=== PATIENT | male | born 1945 | race Caucasian/White ===

== ENCOUNTER 2019-05-22 05:41 | Inpatient (IN) ==
--- NOTE | 2019-05-07 10:51 | PAT Medication Instructions ---
Medication Instructions Date of Service May 07, 2019 Home Medications finasteride 5 mg tablet 5 mg PO QAM folic acid 1 mg PO QAM DO NOT take the morning of surgery finasteride 5 mg tablet 5 mg PO QAM folic acid 1 mg PO QAM Other Notes If you have any questions please call us at [phone] or [phone] or [phone] or [phone]
--- NOTE | 2019-05-07 14:27 | Anesthesiology Consultation ---
Date of Service May 07, 2019 Assessment & Plan (1) Encounter for pre-operative examination: PCP: 05/01/19: "Appears medically stable for procedure." Intermittent dysphagia to solids, no unexplained weight loss. PCP will consult GI for EGD after prostate surgery. Chart Review Chart Review: Acceptable Risk for Surgery and Patient seen in Pre Admission Testing Teaching & Discussion Pre-Anesthesia Teaching/Discussion Notes: Instructed NPO after midnight before surgery,except medications with 15 cc of water. Medication instructions provided according to the PAT guidelines. History Surgery Operation Date: 05/22/19 07:30 Proposed Procedures p Laparoscopic Robotic Assisted Radical Retropubic Prostatectomy, Possible Open, Possible Pelvic Lymph Node Dissection, Possible Suprapubic Tube Placement - Cristobal Moreno MD Height/Weight Height: 5 ft 10 in Weight: 85.1 kg Allergies Allergy/AdvReac Type Severity Reaction Status Date / Time No Known Drug Allergies Allergy Unknown Uncoded 04/30/19 12:08 Medications Home Medications Medication Instructions Recorded Confirmed Last Taken finasteride 5 mg tablet 5 mg PO QAM 04/16/19 04/30/19 Unknown folic acid 1 mg PO QAM 04/30/19 04/30/19 Unknown Past Medical History Medical History BPH (benign prostatic hyperplasia) Hearing deficit Osteoarthritis Prostate cancer Exercise / Class Metabolic Activity II 4-5 Yardwork/Stairs/Walk up hill (large distances walking/some climbing with working (works as building coordinator)) Past Family History Family History Grandmother (Maternal) Family history of diabetes mellitus Past Surgical History Surgical History H/O prostate biopsy History of cataract surgery RT/LEFT History of colonoscopy History of tonsillectomy and adenoidectomy History of tooth extraction Past Anesthesia History No Hx of Anesthesia Complications and No Family Hx of Anesthesia Complications History of PONV No Hx of PONV and No Hx of Motion Sickness Social History Smoking Status: Former smoker tobacco type: cigarettes and cigars Do You Dip or Chew Tobacco: No Smoking End Date: SMOKED IN HIS TEENS YEARS Hx Alcohol Use: Yes Alcohol type: beer and hard liquor alcohol intake frequency: 3 or more drinks per day (1-3 (no more than 3 beers) per day) Hx Substance Use: No substance use type: does not use Review of Systems Patient denies chest pain, shortness of breath, dyspnea on exertion, reflux, cough, wheezing, palpitations. Physical Exam Vital Signs VITALS BP 131/79 P 59 TEMP 97.6 SP02 94%RA RESP 16 PHYSICAL Full neck and c-spine range of motion. Full TMJ range of motion. TMD 3 finger breaths Mallampati Score 2 Dentition: intact Lungs: clear throughout to auscultation Cardiac: regular rate and rhythm, no murmurs noted Spine: normal Carotid arteries: negative bruit Extremities: no edema Testing Laboratory Results 05/07/19 14:37 05/07/19 14:37 Urine Color Yellow 05/07/19 14:37 Urine Appearance Clear (Clear) 05/07/19 14:37 Urine pH 6.0 (4.5-7.5) 05/07/19 14:37 Ur Specific [place] 1.015 (1.000-1.030) 05/07/19 14:37 Urine Protein Negative (Negative) 05/07/19 14:37 Urine Glucose (UA) Negative (Negative) 05/07/19 14:37 Urine Ketones Negative (Negative) 05/07/19 14:37 Urine Nitrite Negative (Negative) 05/07/19 14:37 Ur Leukocyte Esterase Negative (Negative) 05/07/19 14:37 Blood Type B Positive 05/07/19 14:37 Antibody Screen NEGATIVE 05/07/19 14:37 Electrocardiogram Date: 05/07/19 Findings: + SB @ (59) Chest X-Ray Date: 05/07/19 Findings: + NAD
--- NOTE | 2019-05-07 14:30 | PAT Medication Instructions ---
Medication Instructions Date of Service May 07, 2019 Home Medications finasteride 5 mg tablet 5 mg PO QAM folic acid 1 mg PO QAM DO NOT take the morning of surgery folic acid 1 mg PO QAM Take morning of surgery With a small sip of water, OTHERWISE NOTHING TO EAT OR DRINK AFTER MIDNIGHT: finasteride 5 mg tablet 5 mg PO QAM Other Notes If you have any questions please call us at [phone] or [phone] or [phone] or [phone]
--- NOTE | 2019-05-07 15:07 | XRay Report ---
XR chest Pre-admission PA/Lat CLINICAL HISTORY: Preoperative evaluation. COMPARISON STUDY: No previous studies for comparison. FINDINGS: Lung volumes are normal. Lungs are clear. There is no pneumothorax or pleural effusion. Car diac size is normal. Mediastinal contours are normal. There is no evidence for pulmonary edema. IMPRESSION: No acute cardiopulmonary findings. Electronically signed by: rBaydon Chew M.D. 05/07/2019 3:06 PM
[2019-05-07 15:55] LABS: Basophils # (auto) 0.03 K/uL (0-0.2); Basophils % (auto) 0.6 %; Eosinophils # (auto) 0.14 K/uL (0-0.5); Eosinophils % (auto) 2.8 %; Hematocrit (blood only) 41.1 % (42-52); Immature Granulocytes # (auto) 0.01 K/uL (0.00-0.02); Immature Granulocytes % (auto) 0.2 %; Lymphocytes % (auto) 30.5 %; Mean Corpuscular Hgb Conc 34.1 g/dL (32-36); Mean Corpuscular Volume 93.8 fL (80-100); Mean Platelet Volume 10.5 fL (7.4-10.4); Monocytes # (auto) 0.44 K/uL (0.11-0.59); Monocytes % (auto) 8.9 %; Platelet Count 197 K/uL (130-400); RDW Coefficient of Variation 12.6 % (11.5-14.5); Red Blood Count 4.38 M/uL (4.7-6.1); White Blood Count 4.92 K/uL (4.8-10.8)
[2019-05-07 16:01] LABS: BUN Creatinine Ratio 20.8 (10-20); Creatinine Clr Calc Pharmacy 83.4 ml/min; Est GFR (African American) 101.8; Est GFR (Non-African American) 87.8; Potassium 4.1 mmol/L (3.5-5.1)
[2019-05-07 16:02] LABS: Appearance Urine Clear (Clear); Bilirubin Urine Negative (Negative); Blood Urine Negative (Negative); Color Urine Yellow; Glucose Urine UA Negative (Negative); Ketones Urine Negative (Negative); Leukocyte Esterase Urine Negative (Negative); Nitrite Urine Negative (Negative); Protein Urine Negative (Negative); Specific Gravity Urine 1.015 (1.000-1.030); Urobilinogen Urine Negative (Negative)
[2019-05-22] MEDS ORDERED: HEPARIN SOD 5,000 UNIT/0.5 ML VIAL SQ SCH (06:00)
[2019-05-22] MEDS ORDERED: ACETAMINOPHEN 1,000 MG/100 ML VIAL IV SCH (06:00)
[2019-05-22] MEDS ORDERED: LR 15ML/HR IV SCH ×2 (06:00)
[2019-05-22] MEDS ORDERED: CEFAZOLIN 2000MG 2,000 MG/15 ML SYR IV SCH (06:00)
[2019-05-22] MEDS ORDERED: MIDAZOLAM HCL 1 MG/ML 2ML VIAL ONE (06:31)
[2019-05-22] MEDS ORDERED: HYDROmorphone INJ 2 MG/ML SYR/VIAL ONE (06:31)
[2019-05-22] MEDS ORDERED: fentaNYL citrate 100 MCG/2 ML VIAL ONE (06:31)
--- NOTE | 2019-05-22 06:58 | History & Physical Bridge Note ---
Date of Service May 22, 2019 History & Physical Bridge Note I have examined the patient, reviewed the History & Physical and in the interval since the performance of the History & Physical I have noted the following changes of clinical significance: no changes noted
[2019-05-22] MEDS ORDERED: BUPIVACAINE 0.5 % 5 MG/1 ML MPF 30ML VIAL ONE (07:29)
[2019-05-22] MEDS ORDERED: PROMETHAZINE HCL 12.5 MG in SODIUM CHLORIDE 0.9% 50 ML IV PRN (08:02)
[2019-05-22] MEDS ORDERED: HYDROmorphone INJ 2 MG/ML SYR/VIAL IV PRN (08:02)
[2019-05-22] MEDS ORDERED: ATROPINE SULFATE 0.1 MG/ML 10ML SYR IV PRN (08:02)
[2019-05-22] MEDS ORDERED: fentaNYL citrate 100 MCG/2 ML VIAL IV PRN (08:02)
[2019-05-22] MEDS ORDERED: ONDANSETRON INJ 2 MG/ML 2 ML VIAL IV PRN ×2 (08:02→12:46)
[2019-05-22] MEDS ORDERED: ePHEDrine sulfate 50 MG/ML AMP IV PRN (08:02)
[2019-05-22] MEDS ORDERED: METOCLOPRAMIDE HCL INJ 5 MG/ML 2 ML VIAL IV PRN (08:02)
[2019-05-22] MEDS ORDERED: PROPOFOL IV EMULSION 10 MG/ML 20 ML VIAL IV ONE (08:16)
[2019-05-22] MEDS ORDERED: LIDOCAINE HCL 2% 2 ML VIAL/AMP(20MG/ML) INFIL ONE (08:16)
[2019-05-22] MEDS ORDERED: ONDANSETRON INJ 2 MG/ML 2 ML VIAL ONE (08:16)
[2019-05-22] MEDS ORDERED: ROCURONIUM BROMIDE 10 MG/ML 5 ML VIAL ONE ×4 (08:16→10:48)
[2019-05-22] MEDS ORDERED: DEXAMETHASONE SOD INJ 4 MG/ML VIAL ONE (08:16)
[2019-05-22] MEDS ORDERED: NEOSTIGMINE METHYLSULFATE 5 MG/5 ML SYR ONE (08:16)
[2019-05-22] MEDS ORDERED: GLYCOPYRROLATE 0.2 MG/ML VIAL ONE (08:16)
[2019-05-22] MEDS ORDERED: ePHEDrine sulfate 50 MG/ML SYR ONE (08:16)
[2019-05-22] MEDS ORDERED: SURGICEL ABSORB HEMOSTAT 2IN X 14IN TOP ONE (08:45)
[2019-05-22] MEDS ORDERED: FLOSEAL HEMOSTATIC MATRIX 10ML TOP ONE (09:42)
--- NOTE | 2019-05-22 11:18 | Operative Report ---
Post Operative Report Pre & Post Diagnosis Operation Date: 05/22/19 07:30 Pre-Op Diagnosis: Prostate Cancer Post-Op Diagnosis: Prostate Cancer Procedure Operation Date: 05/22/19 07:30 Actual Procedures p Laparoscopic Robotic Assisted Radical Retropubic Prostatectomy, Bilateral Pelvic Lymph Node Dissection - Cristobal Moreno MD Surgeon Cristobal Moreno MD [employer] Todd[employer] Teacher Latonya ORNELAS Estimated Blood Loss 50 Findings Consistent with Post-Op Diagnosis Specimens Prostate + SV, R vas, R and L PLN, periprostatic fat Description of Procedure RALRP, BPLND I attest to the content of the Intraoperative Record and any orders documented therein. Any exceptions are noted below.
[2019-05-22 11:47] LABS: Basophils # (auto) 0.01 K/uL (0-0.2); Basophils % (auto) 0.1 %; Eosinophils # (auto) 0.02 K/uL (0-0.5); Eosinophils % (auto) 0.3 %; Hematocrit (blood only) 39.7 % (42-52); Hemoglobin 13.8 g/dL (14.0-18.0); Immature Granulocytes # (auto) 0.01 K/uL (0.00-0.02); Immature Granulocytes % (auto) 0.1 %; Lymphocytes # (auto) 0.86 K/uL (1.2-3.4); Lymphocytes % (auto) 12.7 %; Mean Corpuscular Volume 92.5 fL (80-100); Mean Platelet Volume 10.4 fL (7.4-10.4); Monocytes # (auto) 0.15 K/uL (0.11-0.59); Monocytes % (auto) 2.2 %; Neutrophils # (auto) 5.73 K/uL (1.4-6.5); Neutrophils % (auto) 84.6 %; Platelet Count 137 K/uL (130-400); RDW Coefficient of Variation 12.6 % (11.5-14.5); RDW Standard Deviation 42.2 fL (36.4-46.3); Red Blood Count 4.29 M/uL (4.7-6.1); White Blood Count 6.78 K/uL (4.8-10.8)
[2019-05-22 12:04] LABS: BUN Creatinine Ratio 18.9 (10-20); Calcium 8.2 mg/dl (8.5-10.1); Creatinine Clr Calc Pharmacy 75.1 ml/min; Est GFR (African American) 98.8; Est GFR (Non-African American) 85.2; Potassium 4.6 mmol/L (3.5-5.1)
--- NOTE | 2019-05-22 12:05 | Anesthesiology Progress Note ---
Date of Service May 22, 2019 Anesthesia Post Procedure Vital Signs Vital Signs: Temp Pulse Pulse Resp BP Pulse Ox 05/22/19 11:55 36.4 C L 67 16 134/64 95 05/22/19 11:45 71 18 127/64 98 05/22/19 11:35 63 16 134/69 97 05/22/19 11:27 36.0 C L 63 16 104/60 99 05/22/19 06:08 36.5 C 68 22 149/87 H 94 Transfer of Care Handoff Completed per policy Notes Mental Status: alert / awake / arousable and participated in evaluation Patient Amnestic to Procedure: Yes Nausea / Vomiting: adequately controlled Pain: adequately controlled Airway Patency, RR, SpO2: stable & adequate BP & HR: stable & adequate Hydration State: stable & adequate Anesthetic Complications: no major complications apparent
[2019-05-22 12:18] LABS: Mean Corpuscular Hgb Conc 34.8 g/dL (32-36)
[2019-05-22] MEDS ORDERED: ACETAMINOPHEN 1,000 MG/100 ML VIAL IV PRN (12:46)
[2019-05-22] MEDS ORDERED: MoRPHine SULFATE 4 MG/ML 1 ML CARP\\VIAL IV PRN (12:46)
[2019-05-22] MEDS ORDERED: OXYCODONE HCL IR 5 MG TAB (IMMEDIATE RELEASE) PO PRN (12:46)
--- NOTE | 2019-05-22 12:56 | Operative Report ---
DATE OF OPERATION: 05/22/2019 PREOPERATIVE DIAGNOSIS: [place] 3+4 adenocarcinoma of the prostate, pretreatment PSA of 12.4. POSTOPERATIVE DIAGNOSIS: [place] 3+4 adenocarcinoma of the prostate. PROCEDURE: Robot-assisted laparoscopic radical retropubic prostatectomy with bilateral pelvic lymph node dissection. SURGEON: Cristobal Moreno MD SALES DEVELOPMENT ASSOCIATE: JOHNSON Gonzalez. Radiologic Tech present throughout the case for retraction, patient positioning, passage of instruments and sutures, suction and irrigation, placement of hemostatic agents, and general patient safety. ANESTHESIA: General anesthesia with endotracheal intubation plus local at port sites. ESTIMATED BLOOD LOSS: 50 mL. INTRAVENOUS FLUIDS: 1400 mL of crystalloid. SPECIMENS SENT TO PATHOLOGY: Periprostatic fat, right vas deferens, prostate plus seminal vesicles, right pelvic lymph nodes and left pelvic lymph nodes. DRAINS LEFT IN PLACE: Include an 18-Uzbek Munson catheter with 10 mL of sterile water in the balloon and a #10 GRUPO drain in the left lower quadrant. COMPLICATIONS: None. FINDINGS: Watertight anastomosis with excellent hemostasis. Periprostatic inflammation with brawny lymph nodes. BRIEF HISTORY: Mr. Shannon is a pleasant 74-year-old male with history of elevated and rising PSA, 12.4 prior to biopsy and a low free PSA. Prostate biopsy has demonstrated 8 out of 14 cores of [place] 3+3 and 3+4 adenocarcinoma of the prostate throughout the gland. After discussion of risks and benefits of various forms of intervention, the patient has decided upon a robotic prostatectomy to manage his disease. Seeing the nomogram risk of lymph node involvement of 6%., a pelvic lymph node dissection is planned. Please see H and P for further details. Intravenous Ancef is provided for antibiotic coverage and SCDs used for DVT prophylaxis as well as subcutaneous heparin. Intravenous Tylenol was provided preoperatively for additional analgesia. DESCRIPTION OF PROCEDURE: The patient was properly identified and brought into the operative suite after identification of appropriate consent on the chart. General anesthesia with endotracheal intubation was initiated and patient was prepped and draped in standard fashion for this procedure. All port sites were anesthetized with local prior to incision. A part time receptionist-out procedure was followed. A transverse supraumbilical incision was made and a 0-degree laparoscope was used with a visual obturator to access the abdominal cavity under direct visualization. This was insufflated to 15 mmHg and surveyed demonstrating some inflammatory changes and scarring around the sigmoid colon consistent with a history of diverticulitis with no other significant intra-abdominal abnormalities. Ports were placed for a 4th arm robotic template including two left-sided 7 mm ports, one right-sided 7 mm robotic port, and a 5 and 12 mm assistant to the dean port. The patient was placed in Trendelenburg and robot was brought in and docked. Colonic adhesions were taken using the cold scissors and then a 0-degree lens was used to drop the bladder down to the level of the pelvis. Periprostatic fat was dissected free and sent for pathologic analysis. Endopelvic fascia was sharply entered on both sides and blunt dissection was carried down to the level of the apex of the prostate. Dorsal venous complex was skeletonized and puboprostatic ligaments were incised. A 0 Vicryl suture on a CT1 needle was used to control the dorsal venous complex in a [id number] fashion. After this was complete and dissection was completed anteriorly, a 30-degree down lens was used to complete the bladder neck dissection. Bladder neck was skeletonized and then divided. Munson was brought through the incision and posterior bladder neck was identified. The patient was noted to have a median lobe element within the vesicle lumen, relatively small in size. The bladder was dissected off of this and posterior dissection was carried out. This was brought down to the level of the vas deferens in the midline. At this level, patient was noted to have significant amounts of inflammation present around the ejaculatory ducts at the seminal vesicles. These were partially skeletonized and attention returned to the prostatic pedicles bilaterally. Thickened periprostatic fat and tissue was appreciated at the level of the base of the prostate bilaterally. Plane of dissection was altered to allow for inclusion of this fat with the prostatic specimen. Again, significant amount of inflammation was appreciated. Vessel sealer was used to control the prostatic pedicles and carry the dissection distal alongside the prostate gland. Partial nerve-sparing dissection was carried out. This was completed on both sides with cold scissors being used to drop the rectum in the midline up to the level of the apex of the prostate. Attention was then turned to the dorsal venous bundle again which was divided using hot scissors. Urethra was skeletonized and divided. Adherent and inflammatory rectourethralis fibers were also divided. Care was taken to avoid any violation of the prostate at the apex of the gland although some difficulties with anatomic structures were appreciated due to the patient's anatomy. The remaining prostatic attachments were divided and prostate was brought up into the abdomen where it was placed within an EndoCatch bag for retrieval at the end of the case. Attention was turned to the contents of the pelvis where excellent hemostasis was appreciated. FloSeal tissue sealant was placed over the prostatic bed for additional hemostasis. Bladder neck was noted to be continent at this stage. Attention was then turned to the obturator lymph node dissections on both sides. Monopolar cautery and Weck clips were used to control the vessels and large lymphatics as necessary. Dissection was carried out using the obturator nerve, external iliac vein and pelvic side wall as the confines of dissection on both sides. Lymph node packets were noted to be relatively thick. No evidence of any injury to the obturator nerves or the external iliac vein were appreciated. After this had been completed on both sides, the left-sided packet was tagged using 2 Weck clips for identification. These were placed within an EndoCatch bag seeing their inability to be withdrawn through the 12 mm assistant to the dean port, also retrieval at the end of the case. FloSeal tissue sealant was placed within the obturator fossa bilaterally for additional hemostasis. Attention was again turned to the pelvis where excellent hemostasis was noted. Of note, prior to placement of hemostatic agent, the rectum had been insufflated under saline irrigation and noted to be free of any injury. A circumferential running anastomosis was performed between the bladder neck and the urethra using a double-armed V-Loc suture. Munson catheter was used for guidance and visualized entering the bladder after completion of closure. A 10 mL of sterile water were placed within the balloon and bladder was filled with greater than 120 mL of sterile irrigant and noted to be watertight. The bladder was drained and fourth arm was removed. A #10 GRUPO drain was brought in via the fourth arm port and placed within the confines of the pelvis while avoiding placing it directly over the anastomosis. Robotic instruments were removed and robot was dedocked. Camera was brought in via the assistant to the dean 12 mm port and the strings in the EndoCatch bags were brought up through the supraumbilical incision. Ports were removed and a supraumbilical incision was enlarged sufficiently to allow for easy removal of the specimen bags. Specimens were handed off for pathologic analysis. A supraumbilical incision was closed in a running fashion using an 0 Vicryl on a UR-5 needle. A #10 GRUPO drain was secured in place using a 2-0 silk suture. Skin was closed using 4-0 Monocryl and Dermabond. Excess carbon dioxide gas was removed from the abdomen prior to completion of closure. Anesthesia was reversed and patient was transferred to the recovery room in stable condition. FOLLOWUP CARE: The patient will be admitted to the floor for standard postoperative management. I attest to the content of the Intraoperative Record and any orders documented therein. Any exceptions are noted below. KEANU
[2019-05-22] MEDS: LACTATED RINGER'S 1,000 ML IV SCH ×2 (14:55→23:39)
--- NOTE | 2019-05-22 15:23 | Urology Progress Note ---
Date of Service May 22, 2019 Assessment & Plan (1) Elevated PSA: 74yo M POD #0 s/p RALP BND Progressing very well immediate post op. Encouraged to be OOBTC for clear tray tonight. Continue use of IS. Clinical progression reviewed. Pt verbalizes understanding. Subjective 74yo M POD #0 s/p RALP, BLND Pt resting in bed, alert and in great spirits. Friend at bedside. Pain is well controlled, tolerating sips of clears without issue. He denies n/v. Munson draining clear yellow. GRUPO putting out moderate serosang. Abdominal incisions C/D/I. Pt has been using IS as instructed. Results & Data Vital Signs (Past 12 Hours) Vital Signs Temp Pulse Pulse Pulse Resp BP Pulse Ox 05/22/19 14:21 71 16 125/74 94 05/22/19 13:36 36.6 C 75 16 132/80 94 05/22/19 13:00 73 15 132/75 93 05/22/19 12:30 36.6 C 74 15 133/67 96 05/22/19 12:15 59 L 16 141/68 H 94 05/22/19 12:05 71 16 135/66 94 05/22/19 11:55 36.4 C L 67 16 134/64 95 05/22/19 11:45 71 18 127/64 98 05/22/19 11:35 63 16 134/69 97 05/22/19 11:27 36.0 C L 63 16 104/60 99 05/22/19 06:08 36.5 C 68 22 149/87 H 94
[2019-05-22] MEDS: FAMOTIDINE 20 MG in SYRINGE 3 ML IV SCH (16:14)
[2019-05-22] MEDS: CEFAZOLIN 2000MG 2,000 MG/15 ML SYR IV SCH ×2 (18:40→23:39)
[2019-05-22] MEDS: HEPARIN SOD 5,000 UNIT/0.5 ML VIAL SQ SCH (21:07)
[2019-05-22] MEDS: DOCUSATE SODIUM 100 MG CAP PO SCH (21:07)
[2019-05-23] MEDS: FAMOTIDINE 20 MG in SYRINGE 3 ML IV SCH (01:45)
--- NOTE | 2019-05-23 07:28 | Anesthesiology Progress Note ---
Date of Service May 23, 2019 Anesthesia Post Procedure Vital Signs Vital Signs: Temp Pulse Pulse Pulse Resp BP BP 05/23/19 04:00 37.0 C 69 16 120/49 L 05/22/19 23:03 36.7 C 68 16 143/72 H 05/22/19 19:28 36.3 C L 82 18 138/70 05/22/19 15:33 36.4 C L 71 17 124/71 05/22/19 14:21 71 16 125/74 05/22/19 13:36 36.6 C 75 16 132/80 05/22/19 13:00 73 15 132/75 05/22/19 12:30 36.6 C 74 15 133/67 05/22/19 12:15 59 L 16 141/68 H 05/22/19 12:05 71 16 135/66 05/22/19 11:55 36.4 C L 67 16 134/64 05/22/19 11:45 71 18 127/64 05/22/19 11:35 63 16 134/69 05/22/19 11:27 36.0 C L 63 16 104/60 Pulse Ox 05/23/19 04:00 93 05/22/19 23:03 94 05/22/19 19:28 95 05/22/19 15:33 94 05/22/19 14:21 94 05/22/19 13:36 94 05/22/19 13:00 93 05/22/19 12:30 96 05/22/19 12:15 94 05/22/19 12:05 94 05/22/19 11:55 95 05/22/19 11:45 98 05/22/19 11:35 97 05/22/19 11:27 99 Notes Mental Status: alert / awake / arousable and participated in evaluation Patient Amnestic to Procedure: Yes Nausea / Vomiting: adequately controlled Pain: adequately controlled Airway Patency, RR, SpO2: stable & adequate BP & HR: stable & adequate Hydration State: stable & adequate Anesthetic Complications: Pt Satisfied with anesthetic care
[2019-05-23 07:55] LABS: Basophils # (auto) 0.01 K/uL (0-0.2); Basophils % (auto) 0.1 %; Eosinophils # (auto) 0.01 K/uL (0-0.5); Eosinophils % (auto) 0.1 %; Hematocrit (blood only) 36.5 % (42-52); Hemoglobin 12.5 g/dL (14.0-18.0); Immature Granulocytes # (auto) 0.01 K/uL (0.00-0.02); Immature Granulocytes % (auto) 0.1 %; Lymphocytes # (auto) 1.54 K/uL (1.2-3.4); Lymphocytes % (auto) 22.5 %; Mean Corpuscular Hgb Conc 34.2 g/dL (32-36); Mean Corpuscular Volume 92.4 fL (80-100); Mean Platelet Volume 10.6 fL (7.4-10.4); Monocytes # (auto) 1.01 K/uL (0.11-0.59); Monocytes % (auto) 14.8 %; Neutrophils # (auto) 4.26 K/uL (1.4-6.5); Neutrophils % (auto) 62.4 %; Platelet Count 153 K/uL (130-400); RDW Coefficient of Variation 12.6 % (11.5-14.5); RDW Standard Deviation 42.9 fL (36.4-46.3); Red Blood Count 3.95 M/uL (4.7-6.1); White Blood Count 6.84 K/uL (4.8-10.8)
[2019-05-23 08:29] LABS: BUN Creatinine Ratio 13.7 (10-20); Creatinine Clr Calc Pharmacy 73.4 ml/min; Est GFR (African American) 97.8; Est GFR (Non-African American) 84.4; Potassium 3.9 mmol/L (3.5-5.1)
--- NOTE | 2019-05-23 08:55 | Urology Progress Note ---
Date of Service May 23, 2019 Assessment & Plan (1) Prostate cancer: A/P 74 yo male POD#1 s/p RALRP, BPLND. Doing well. Regular diet, HTIVF, ambulate. Anticipate DC home today after lunch. DC instructions reviewed. Subjective 74 yo male POD#1 s/p RALRP, BPLND. Doing well, tolerating clears, ambulatory yesterday and this AM. In good spirits and comfortable with IV Tylenol. No other c/o. Review of Systems Constitutional: no fever and no chills Eyes: no diplopia Ear, Nose, Mouth, Throat: no ear trauma Respiratory: no hemoptysis Cardiovascular: no chest pain Integumentary: no acne and no boil Neurologic: no paralysis Psychiatric: no hopelessness Allergy / Immunological: no tongue swelling Physical Exam Constitutional: well developed and well nourished; no acute distress Eyes: eyes not dysmorphic ENMT: Ears: no external ear abnormality Neck: trachea midline; no anterior neck swelling Respiratory: no respiratory distress and does not use accessory muscles Cardiovascular: Vessels: radial pulses present Gastrointestinal (Abdomen): Inspection/Auscultation: abdomen not distended Percussion/Palpation: abdomen soft; abdomen nontender inc c/d/i Musculoskeletal: Head/Neck/Chest: normocephalic and neck supple Skin: normal turgor Neurologic: awake; not obtunded Psychiatric: Orientation: oriented x 3 Lymphatic: no lymphadenopathy Results & Data Vital Signs (Past 12 Hours) Vital Signs Temp Pulse Pulse Resp BP BP Pulse Ox 05/23/19 07:35 36.8 C 60 18 124/62 95 05/23/19 04:00 37.0 C 69 16 120/49 L 93 05/22/19 23:03 36.7 C 68 16 143/72 H 94 Laboratory Results Laboratory Results - last 48 hr 05/22/19 05/22/19 05/23/19 11:32 11:32 07:00 WBC 6.78 6.84 RBC 4.29 L 3.95 L Hgb 13.8 L 12.5 L Hct 39.7 L 36.5 L MCV 92.5 92.4 MCH 32.2 31.6 MCHC 34.8 34.2 RDW Std Deviation 42.2 42.9 RDW Coeff of Dann 12.6 12.6 Plt Count 137 153 MPV 10.4 10.6 H Immature Gran % (Auto) 0.1 0.1 Neut % (Auto) 84.6 62.4 Lymph % (Auto) 12.7 22.5 [place] % (Auto) 2.2 14.8 Eos % (Auto) 0.3 0.1 Baso % (Auto) 0.1 0.1 Immature Gran # (Auto) 0.01 0.01 Neut # (Auto) 5.73 4.26 Lymph # (Auto) 0.86 L 1.54 [place] # (Auto) 0.15 1.01 H Eos # (Auto) 0.02 0.01 Baso # (Auto) 0.01 0.01 Sodium 139 Potassium 4.6 Chloride 106 Carbon Dioxide 28 Anion Gap 5.0 BUN 16 Creatinine 0.85 Est Cr Clr Drug Dosing 75.1 Est GFR ( Amer) 98.8 Est GFR (Non-Af Amer) 85.2 BUN/Creatinine Ratio 18.9 Glucose 155 H Calcium 8.2 L 05/23/19 07:00 WBC RBC Hgb Hct MCV MCH MCHC RDW Std Deviation RDW Coeff of Dann Plt Count MPV Immature Gran % (Auto) Neut % (Auto) Lymph % (Auto) [place] % (Auto) Eos % (Auto) Baso % (Auto) Immature Gran # (Auto) Neut # (Auto) Lymph # (Auto) [place] # (Auto) Eos # (Auto) Baso # (Auto) Sodium 140 Potassium 3.9 D Chloride 106 Carbon Dioxide 28 Anion Gap 6.0 BUN 12 Creatinine 0.87 Est Cr Clr Drug Dosing 73.4 Est GFR ( Amer) 97.8 Est GFR (Non-Af Amer) 84.4 BUN/Creatinine Ratio 13.7 Glucose 108 H Calcium 8.0 L PG Care Time/CCT Total # of Minutes Spent Total Time Spent with Patient: Total time spent is greater than 50% in coordination of care (as documented) at patient's floor/unit and/or counseling patient:
--- NOTE | 2019-05-23 08:56 | Discharge Summary ---
Date of Service May 23, 2019 Admission HPI Per Admitting Provider CAP for RALRP. See H&P for further details. Admission Exam (Per Admitting) Constitutional well developed and well nourished; no acute distress Eyes eyes not dysmorphic ENMT Ears: no external ear abnormality Neck trachea midline; no anterior neck swelling Respiratory no respiratory distress and does not use accessory muscles Cardiovascular Vessels: radial pulses present Gastrointestinal (Abdomen) Inspection/Auscultation: abdomen not distended Percussion/Palpation: abdomen soft; abdomen nontender Musculoskeletal Head/Neck/Chest: normocephalic and neck supple Skin normal turgor Neurologic awake; not obtunded Psychiatric Orientation: oriented x 3 Lymphatic no lymphadenopathy Discharge Data Procedures Performed Operation Date: 05/22/19 07:30 Actual Procedures p Laparoscopic Robotic Assisted Radical Retropubic Prostatectomy, Bilateral Pelvic Lymph Node Dissection - Cristobal Moreno MD Hospital Course (1) Prostate cancer: A/P 74 yo male POD#1 s/p RALRP, BPLND. Doing well. Regular diet, HTIVF, ambulate. Anticipate DC home today after lunch. DC instructions reviewed. Discharge Instructions See DC instruction sheet and Rx. OP appts in place.
[2019-05-23] MEDS: DOCUSATE SODIUM 100 MG CAP PO SCH (09:06)
[2019-05-23] MEDS: HEPARIN SOD 5,000 UNIT/0.5 ML VIAL SQ SCH (09:06)
[2019-05-23] MEDS: CEFAZOLIN 2000MG 2,000 MG/15 ML SYR IV SCH (09:06)
[2019-05-23] MEDS: LACTATED RINGER'S 1,000 ML IV SCH (09:16)
[2019-05-23] MEDS: OXYCODONE HCL IR 5 MG TAB (IMMEDIATE RELEASE) PO PRN ×2 (11:10→14:54)
== END 2019-05-23 15:24 | disposition home or self-care (01) | DRG 708 ==
LOC: ASU 05:41 → 3N 11:18
DX: C61 Malignant neoplasm of prostate